=== PATIENT | female | born 1970 | race Caucasian/White ===

== ENCOUNTER → 2020-02-05 | Outpatient (CLI) | payer BC | LOC: HEART 5 11:10 | DX: R00.2 Palpitations (principal); R53.83 Other fatigue; R00.0 Tachycardia, unspecified; R93.1 Abnormal findings on diagnostic imaging of heart and coronary circulation; I07.1 Rheumatic tricuspid insufficiency | CPT/HCPCS: 93306 ==

== ENCOUNTER → 2020-03-11 | Outpatient (CLI) | payer BC | LOC: HEART 5 15:30 → RT 15:44 | DX: R00.2 Palpitations (principal); R00.0 Tachycardia, unspecified | CPT/HCPCS: 93270 ==